=== PATIENT | female | born 1985 | race Caucasian/White ===

== ENCOUNTER 2024-06-13 10:46 | Outpatient (AMB) | payer OTHER, SELFPAY ==
--- NOTE | 2024-06-13 11:12 | A.OFFPC_ITS ---
Vital Signs 06/13/24 11:25 Height 5 ft 1 in Weight 194 lb 6 oz BMI 36.7 BP 132/82 Blood Pressure Location Lt brachial Position Sitting Pulse 100 Pulse Source Pulse Oximeter Pulse Oximetry (%) 95 Oxygen Delivery Method Room Air Intake Visit Reasons: Est. 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 She transferred from [facility]. Patient is and has 2 daughters. She has concerns regarding weight management associated with Polycystic Ovary Syndrome (PCOS). She was previously managed at [facility] where she was diagnosed with PCOS and started on Metformin for insulin resistance. However, she experienced significant nausea, precluding consistent use of Metformin over the past few months. As the nausea was severe and persistent, affecting her ability to eat, she discontinued the medication. She reports difficulty with weight loss despite dietary modifications and has attempted various strategies without success including a low-carbohydrate diet and walking and strength training. The patient requests Phentermine and expresses interest in using it as a short- term measure to support weight loss. She has PCOS-related insulin resistance but has not been diagnosed with diabetes. Her recent laboratory workup indicated a vitamin D deficiency, for which she was on a high dose treatment for 12 weeks. Patient has lab orders from her OBGYN to repeat her vitamin-D level now that she is off the supplement. She has anxiety and depression, and she has been stable on buspirone and bup ropion for years. Her OBGYN has been refilling this medication for her. Patient was informed and verbally consented to the use of an ambient scribe for clinic note documentation during this visit. ROS: Constitutional: No unexplained weight loss, fever, chills or night sweats. Respiratory: No shortness of breath, cough or sputum production. Cardiovascular: No chest pain, chest pressure or chest discomfort. No palpitations or pedal edema. Gastrointestinal: No anorexia, nausea, vomiting or diarrhea. No abdominal pain Neurologic: No headache, dizziness, syncope Endocrine: No cold or heat intolerance. No polyuria or polydipsia. Psychiatric: see HPI Physical exam: Constitutional: Alert, in no distress. Head: Normocephalic.. Neck: Supple, Full range of motion. No lymphadenopathy. No palpable thyroid masses. Respiratory: Clear to auscultation. Cardiovascular: S1 S2 regular. No murmurs. Extremities: Warm and well perfused. No clubbing, cyanosis or edema. Psychiatric: Normal mood and affect [facility] Medical History (Updated 06/13/24 @ 11:56 by BC Hernandez) History of ectopic Anxiety and depression Vitamin D deficiency Insulin resistance Obesity, class 3 PCOS (polycystic ovarian syndrome) Surgical History (Updated 06/13/24 @ 11:56 by BC Hernandez) History of salpingectomy History of section Family History (Updated 06/13/24 @ 11:24 by Shaunna Pritchett CMA) Father Alcoholic Asthma Maternal Grandmother Asthma Mother Asthma Other Substance abuse Social History (Updated 06/13/24 @ 11:14 by Shaunna Pritchett CMA) Housing: House Alcohol intake: current Patient Tobacco Use Status: Never used Tobacco e-Cigarette/Vaping Use: Never Used Second Hand Smoke Exposure: No service: No Current occupational status: employed 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 1. Little interest or pleasure in doing things: not at all 2. Feeling down, depressed, or hopeless: not at all 3. Trouble falling or staying asleep, or sleeping too much: not at all 4. Feeling tired or having little energy: several days 5. Poor appetite or overeating: nearly every day 6. Feeling bad about yourself - or that you are a failure or have let yourself or your family down: several days 7. Trouble concentrating on things, such as reading the newspaper or watching television: not at all 8. Moving or speaking so slowly that other people could have noticed. Or the opposite - being so fidgety or restless that you have been moving around a lot more than usual: not at all 9. Thoughts that you would be better off or of hurting yourself in some way: not at all Total score: 5 Depression Screening Interpretation: Positive Depression Screening Done: Yes 30318 - PHQ-9 Billing: Yes Source: Developed by Drs. Arnulfo Stanley, Meggan Pena, Toney Valdez and colleagues, with an educational janene from [employer]. Thrive Questionnaire Date Thrive assessed: 06/13/24 I am a: Patient What is your living situation today?: I have a steady place to live Within the past 12 months, did the food you bought not last and you didn't have the money to get more?: Never true Within the past 12 months, did you worry whether your food would run out before you got money to buy more?: Never true Do you have trouble paying for medicines?: No Do you have trouble getting transportation to medical appointments?: No Do you have trouble paying your heating and electricity bill?: No Do you have trouble taking care of your child, family member or friend?: No Do you have trouble with day-to-day activities such as bathing, preparing meals, shopping, managing finances, etc.?: No Are you currently unemployed and looking for a job?: No Are you interested in more education?: No Please select the resources that you would like help with: None Currently or been in a relationship where the following occur: No concerns reported THRIVE Score: 0 Physical exam (Primary Care) Vital Signs: Last Vital Signs Pulse 100 06/13/24 11:25 BP 132/82 06/13/24 11:25 Pulse Ox 95 06/13/24 11:25 Oxygen Delivery Method Room Air 06/13/24 11:25 BMI result Body Mass Index 36.7 Tobacco/Smoking Status: Tobacco use Status Tobacco use date assessed 06/13/24 06/13/24 11:14 Patient Tobacco Use Status Never used Tobacco 06/13/24 11:14 e-Cigarette/Vaping Use Never Used 06/13/24 11:14 PHQ-9: PHQ-9 Score PHQ-9: Total score 5 06/13/24 11:14 Depression Screening Interpretation: Positive Thrive Assessment: Date of Thrive Assessment Date Thrive assessed 06/13/24 06/13/24 11:14 Currently or been in a relationship where the following occur: No concerns reported Coding Level of Care Code New Pt Level 4 (80251) Complex EM visit Add On G2211 Diagnoses PCOS (polycystic ovarian syndrome) E28.2 Obesity, class 3 E66.813 Insulin resistance E88.819 Vitamin D deficiency E55.9 Anxiety and depression F41.9; F32.A Additional Codes PHQ-9 - 07264 - PHQ-9 Billing: Yes ([id number]) Assessment & Plan Assessment & Plan (1) PCOS (polycystic ovarian syndrome): Code(s): E28.2 - Polycystic ovarian syndrome Category: Medical (2) Obesity, class 3: Code(s): E66.813 - Obesity, class 3 Category: Medical (3) Insulin resistance: Code(s): E88.819 - Insulin resistance, unspecified Category: Medical (4) Vitamin D deficiency: Code(s): E55.9 - Vitamin D deficiency, unspecified Category: Medical (5) Anxiety and depression: Code(s): F41.9 - Anxiety disorder, unspecified; F32.A - Depression, unspecified Category: Medical Plan The patient will have lab orders completed for her OBGYN, and I added a hemoglobin A1c. She will continue her current medications for anxiety and depression. I told her that I can also refill these medications for her. She has been stable on them for years. She has [employer] which will not cover GLP 1 unless it comes from a board-certified weight loss specialist usually. I will prescribe phentermine to be used short term for weight loss in addition to lifestyle modifications. Patient denies history of cardiovascular disease. Reviewed side effects with the patient. I will have her come back in a few weeks to check vitals and progress. Orders: Orders Hemoglobin A1c Today E28.2 - Polycystic ovarian syndrome Medications: New phentermine Administer before breakfast or 1 to 2 hours after breakfast 15 mg PO DAILY 30 caps 0RF
[2024-06-13 11:25] VITALS: BP 132/82; PULSE 100; O2SAT 95; BMI 36.7
== END 2024-06-13 11:49 | disposition home or self-care (01) ==
PROVIDERS: PCP Physician Assistant Medical; Visit Provider Physician Assistant Medical
DX: E28.2 Polycystic ovarian syndrome (principal); E66.813 Obesity, class 3; E88.819 Insulin resistance, unspecified; Z68.36 Body mass index [BMI] 36.0-36.9, adult; E55.9 Vitamin D deficiency, unspecified; F41.9 Anxiety disorder, unspecified; F32.A Depression, unspecified

== ENCOUNTER → 2024-06-13 10:46 | Outpatient (BNVA) | payer OTHER, SELFPAY | PROVIDERS: Visit Provider Physician Assistant Medical | DX: E28.2 Polycystic ovarian syndrome (principal); E66.813 Obesity, class 3; Z68.36 Body mass index [BMI] 36.0-36.9, adult; E88.819 Insulin resistance, unspecified; E55.9 Vitamin D deficiency, unspecified; F41.9 Anxiety disorder, unspecified; F32.A Depression, unspecified | CPT/HCPCS: 96127 ==

== ENCOUNTER 2024-06-24 08:03 | Outpatient (REF) | payer OTHER, SELFPAY ==
[2024-06-24 11:36] LABS: Estimated Average Glucose 103 mg/dL; Hemoglobin A1C 113.1647 umol/L; Hemoglobin A1c % 5.2 % (<6.0); Total Hemoglobin (HGBA1C) 3365.2531 umol/L
[2024-06-24 11:58] LABS: Folate 14.6 ng/mL (> or = 4.0); Vitamin B12 461 pg/mL (200-900)
[2024-06-24 12:08] LABS: Alanine Aminotransferase 14 U/L (0-31); Albumin Level 4.3 g/dL (3.5-5.0); Alkaline Phosphatase 63 U/L (39-117); Anion Gap 10 (12-20); Aspartate Amino Transferase 20 U/L (5-31); Bilirubin Total 0.5 mg/dL (0.0-1.0); Blood Urea Nitrogen 13 mg/dL (9-16); Calcium 9.9 mg/dL (8.4-10.2); Carbon Dioxide 26 mmol/L (22-29); Chloride 108 mmol/L (96-108); Estimated Glomerular Filt Rate > 60; Glucose Random 88 mg/dL (60-115); Potassium 4.1 mmol/L (3.3-5.1); Sodium 140 mmol/L (135-145); Total Protein 7.6 g/dL (6.5-8.0)
[2024-06-24 12:10] LABS: Insulin 10 uU/mL (2-29); Vitamin D 25-OH Total 51.8 ng/mL (>30)
== END 2024-06-24 08:04 | disposition home or self-care (01) ==
LOC: HO.HHCL 08:03
PROVIDERS: Visit Provider Physician Assistant Medical
DX: E55.9 Vitamin D deficiency, unspecified (principal); E28.2 Polycystic ovarian syndrome; E16.1 Other hypoglycemia
CPT/HCPCS: 36415; 80053; 82306; 82607; 82746; 83036; 83525

== ENCOUNTER 2024-07-04 09:58 | Outpatient (AMB) | payer OTHER, SELFPAY ==
--- NOTE | 2024-07-04 10:00 | A.OFFPC_ITS ---
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 Patient is and has 2 daughters. At her initial visit we discussed her concerns regarding weight management. She was treated with metformin previously for weight management and PCOS, but she experienced nausea precluding consistent use of metformin. She has [facility] which requires GLP wants to be prescribed by a weight loss referral management liaison. She started phentermine 15 mg after her last visit. She lost a little over 7 lb initially, but she has plateaued. She denies side effects on the medication. Her wedding is next March. She is very motivated to lose weight. She is walking, and she is starting strength training. ROS: - Cardiovascular: Denies palpitations or increased anxiety. - Gastrointestinal: Denies appetite loss affecting meal frequency. Physical exam: Respiratory: Clear to auscultation. Cardiovascular: S1 S2 regular. No murmurs. [facility] Medical History (Updated 07/04/24 @ 10:26 by BC Hernandez) Obesity, class 2 History of ectopic Anxiety and depression Vitamin D deficiency Insulin resistance Obesity, class 3 PCOS (polycystic ovarian syndrome) Surgical History (Updated 06/13/24 @ 11:56 by BC Hernandez) History of salpingectomy History of section Family History (Updated 06/13/24 @ 11:24 by Shaunna Pritchett CMA) Father Alcoholic Asthma Maternal Grandmother Asthma Mother Asthma Other Substance abuse Social History (Updated 06/13/24 @ 11:14 by Shaunna Pritchett CMA) Housing: House Alcohol intake: current Patient Tobacco Use Status: Never used Tobacco e-Cigarette/Vaping Use: Never Used Second Hand Smoke Exposure: No service: No Current occupational status: employed 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 20443 - PHQ-9 Billing: Patient declined-do not bill Source: Developed by Drs. Arnulfo Stanley, Meggan Pena, Toney Valdez and colleagues, with an educational janene from [employer]. Thrive Questionnaire Date Thrive assessed: 07/04/24 I am a: Patient What is your living situation today?: I have a steady place to live Within the past 12 months, did the food you bought not last and you didn't have the money to get more?: Never true Within the past 12 months, did you worry whether your food would run out before you got money to buy more?: Never true Do you have trouble paying for medicines?: No Do you have trouble getting transportation to medical appointments?: No Do you have trouble paying your heating and electricity bill?: No Do you have trouble taking care of your child, family member or friend?: No Do you have trouble with day-to-day activities such as bathing, preparing meals, shopping, managing finances, etc.?: No Are you currently unemployed and looking for a job?: No Are you interested in more education?: No Please select the resources that you would like help with: None Currently or been in a relationship where the following occur: No concerns reported THRIVE Score: 0 Physical exam (Primary Care) Vital Signs: Last Vital Signs Pulse 93 07/04/24 10:02 Resp 12 07/04/24 10:02 BP 117/70 07/04/24 10:02 Pulse Ox 100 07/04/24 10:02 Oxygen Delivery Method Room Air 07/04/24 10:02 BMI result Body Mass Index 35.4 Tobacco/Smoking Status: Tobacco use Status Tobacco use date assessed 06/13/24 07/04/24 10:04 Patient Tobacco Use Status Never used Tobacco 07/04/24 10:04 e-Cigarette/Vaping Use Never Used 07/04/24 10:04 Thrive Assessment: Date of Thrive Assessment Date Thrive assessed 07/04/24 07/04/24 10:04 Currently or been in a relationship where the following occur: No concerns reported Coding Level of Care Code Est Pt Level 3 (74845) Complex EM visit Add On G2211 Diagnoses Obesity, class 2 E66.812 Assessment & Plan Assessment & Plan (1) Obesity, class 2: Code(s): E66.812 - Obesity, class 2 Category: Medical Plan The patient will increase phentermine to 15 mg twice daily. Side effects reviewed. Continue exercise for cardiovascular health and weight loss. She will try the right BMI courtney. Written instructions given to patient. Follow up in 8 weeks. Medications: Changed From phentermine Administer before breakfast or 1 to 2 hours after breakfast 15 mg PO DAILY 30 caps 0RF To phentermine 15 mg PO BID 60 caps 2RF Patient Instructions: [employer] Reminders: Watch all video tutorials, read all text messages and click on any features hidden messages to understand the courtney better. Accurately enter your weight in pounds and height in feet and inches. Accurately?select what time you wake up and sleep and be careful to select am/pm properly. Save your username and password somewhere. The courtney meets all HIPAA requirements. You must select shakes or bars or both and in the following?pages a specific brand. If you don't select a brand, the plan won't be accurate. You can use a regular?scale but buying the $23 [employer] scale from [employer] is recommended. For any issues you can hit technical support. If you take anti-diabetic and/or anti-hypertensive medications you must monitor blood sugars and blood pressure and alert the office if blood sugars are below 90 and blood pressures are below 110/60 so we can adjust medications if appropriate. The courtney will send you automatic?reminders to do that if you enter in the courtney that you have diabetes and/or hypertension and take medications for these conditions.
[2024-07-04 10:02] VITALS: BP 117/70; PULSE 93; RESP 12; O2SAT 100; BMI 35.4
== END 2024-07-04 10:27 | disposition home or self-care (01) ==
PROVIDERS: Visit Provider Physician Assistant Medical
DX: E66.812 Obesity, class 2 (principal); Z68.35 Body mass index [BMI] 35.0-35.9, adult

== ENCOUNTER 2024-09-12 11:34 | Outpatient (AMB) | payer OTHER, SELFPAY ==
[2024-09-12 11:38] VITALS: BP 110/80; PULSE 93; O2SAT 99; BMI 34.6
--- NOTE | 2024-09-12 11:38 | A.OFFPC_ITS ---
Vital Signs 09/12/24 11:38 Height 5 ft 1 in Weight 183 lb 4 oz BMI 34.6 BP 110/80 Blood Pressure Location Rt brachial Position Sitting Pulse 93 Pulse Source Pulse Oximeter Pulse Oximetry (%) 99 Oxygen Delivery Method Room Air Intake Visit Reasons: med check Allergies No Known Allergies Allergy (Verified 09/12/24 11:40) Tobacco use date assessed: 09/12/24 Dental Screening Dental Screen Date: 09/12/24 Did you have a dental visit in the last 12 months?: Yes Did you have a dental problem in the last 6 months where you did not have access to dental care?: No Was dental information given to patient?: Patient has dentist HPI HPI Comments History of Present Illness Details The patient is a 38-year-old female here for a medication review. Patient is and has 2 daughters. She is engaged. At her initial visit we discussed her concerns regarding weight management. She was treated with metformin previously for weight management and PCOS, but she experienced nausea precluding consistent use of metformin. She has [employer], and they will not cover a GLP 1. She started phentermine 15 mg and increased to 30 mg. She only lost 9 lb, and she has plateaued. She endorses constipation on the medicine. She walks and does strength training. She has changed her diet. She is very frustrated that she has been unable to lose weight. She has PCOS. She also went to [facility], but she had to pay [id number], and she did not find the appointment helpful. Depression has been well-controlled. She has a therapist. She is on Wellbutrin, but she is going to discuss stopping it with them because this was situational at the time of her divorce. She has chronic anxiety treated with buspirone which is well-controlled. ROS: Constitutional: No unexplained weight loss, fever, chills, fatigue or night sweats. Skin: No rash Endocrine: No cold or heat intolerance. No polyuria or polydipsia. Physical exam: Constitutional: Alert, in no distress. Extremities: Warm and well perfused. No clubbing, cyanosis or edema. Psychiatric: Normal mood and affect [facility] Medical History (Reviewed 09/12/24 @ 11:40 by Debo Pack [facility]) Obesity, class 2 History of ectopic Anxiety and depression Vitamin D deficiency Insulin resistance Obesity, class 3 PCOS (polycystic ovarian syndrome) Surgical History History of salpingectomy History of section Family History Father Alcoholic Asthma Maternal Grandmother Asthma Mother Asthma Other Substance abuse Social History (Reviewed 09/12/24 @ 11:40 by Debo Pack [facility]) Housing: House Alcohol intake: current Patient Tobacco Use Status: Never used Tobacco e-Cigarette/Vaping Use: Never Used Second Hand Smoke Exposure: No service: No Current occupational status: employed 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 1. Little interest or pleasure in doing things: not at all 2. Feeling down, depressed, or hopeless: not at all 3. Trouble falling or staying asleep, or sleeping too much: not at all 4. Feeling tired or having little energy: not at all 5. Poor appetite or overeating: not at all 6. Feeling bad about yourself - or that you are a failure or have let yourself or your family down: not at all 7. Trouble concentrating on things, such as reading the newspaper or watching television: not at all 8. Moving or speaking so slowly that other people could have noticed. Or the opposite - being so fidgety or restless that you have been moving around a lot more than usual: not at all 9. Thoughts that you would be better off or of hurting yourself in some way: not at all Total score: 0 Depression Screening Interpretation: Negative Depression Screening Done: Yes Source: Developed by Drs. Arnulfo Stanley, Meggan Pena, Toney Valdez and colleagues, with an educational janene from [employer]. Thrive Questionnaire Date Thrive assessed: 09/05/24 I am a: Patient What is your living situation today?: I have a steady place to live Within the past 12 months, did the food you bought not last and you didn't have the money to get more?: Never true Within the past 12 months, did you worry whether your food would run out before you got money to buy more?: Never true Do you have trouble paying for medicines?: No Do you have trouble getting transportation to medical appointments?: No Do you have trouble paying your heating and electricity bill?: No Do you have trouble taking care of your child, family member or friend?: No Do you have trouble with day-to-day activities such as bathing, preparing meals, shopping, managing finances, etc.?: No Are you currently unemployed and looking for a job?: No Are you interested in more education?: No Please select the resources that you would like help with: None Currently or been in a relationship where the following occur: No concerns reported THRIVE Score: 0 AUDIT C Alcohol Use Questionnaire (AUDIT-C) 1. How often do you have a drink containing alcohol?: 2-4 times a month 2. How many drinks containing alcohol do you have on a typical day when you are drinking?: 1 or 2 3. How often do you have six or more drinks on one occasion?: Never Total Score: 2 GOOD-7 AMB Questionnaire GOOD-7 Date GOOD - 7 assessed: 09/12/24 Feeling nervous, anxious, or on edge: 1 = Several days Not being able to stop or control worryin = Several days Worrying too much about different things: 1 = Several days Trouble relaxin = Not at all Being so restless that it is hard to sit still: 0 = Not at all Becoming easily annoyed or irritable: 0 = Not at all Feeling afraid as if something awful might happen: 0 = Not at all Total GOOD-7 score (0-4 normal; 5-9 mild; 10-14 moderate; 15-21 severe): 3 Source: Developed by Drs. Arnulfo Stanley, Meggan Pena, Toney Valdez and colleagues, with an educational janene from [employer]. Physical exam (Primary Care) Vital Signs: Last Vital Signs Pulse 93 09/12/24 11:38 BP 110/80 09/12/24 11:38 Pulse Ox 99 09/12/24 11:38 Oxygen Delivery Method Room Air 09/12/24 11:38 BMI result Body Mass Index 34.6 Tobacco/Smoking Status: Tobacco use Status Tobacco use date assessed 09/12/24 09/12/24 11:42 Patient Tobacco Use Status Never used Tobacco 09/12/24 11:42 e-Cigarette/Vaping Use Never Used 09/12/24 11:42 PHQ-9: PHQ-9 Score PHQ-9: Total score 0 09/12/24 12:00 Depression Screening Interpretation: Negative Thrive Assessment: Date of Thrive Assessment Date Thrive assessed 09/05/24 09/12/24 11:42 Currently or been in a relationship where the following occur: No concerns reported Coding Level of Care Code Est Pt Level 4 (90599) Diagnoses Obesity, class 2 E66.812 Time Spent (min) 30 Comment Direct patient care, completing documentation Assessment & Plan Assessment & Plan (1) Obesity, class 2: Code(s): E66.812 - Obesity, class 2 Category: Medical Plan The patient will discontinue phentermine since she has not reach her weight loss goal and she experiences constipation on this medicine. We discussed referral to weight loss management to discuss other modalities including medications and surgery. Patient says she does not want to proceed with the at this time. She tried the [employer] courtney-experienced weight gain and constipation. Recommended weight watchers at the [facility]. Defers referral to dietitian. She would like to check labs including B12, vitamin-D, cortisol and hormones due to PCOS. We will consider referral to Reproductive Endocrinology based on results. Orders: Orders Cortisol Random Today E28.2 - Polycystic ovarian syndrome, E55.9 - Vitamin D deficiency, unspecified, E66.812 - Obesity, class 2 Vitamin B12 Today E28.2 - Polycystic ovarian syndrome, E55.9 - Vitamin D deficiency, unspecified, E66.812 - Obesity, class 2, Z91.89 - Other specified personal risk factors, not elsewhere classified TSH reflex Free T4 Today E28.2 - Polycystic ovarian syndrome, E55.9 - Vitamin D deficiency, unspecified, E66.812 - Obesity, class 2 Vitamin D 25-OH (D2 and D3) Today E28.2 - Polycystic ovarian syndrome, E55.9 - Vitamin D deficiency, unspecified, E66.812 - Obesity, class 2, M85.80 - Other specified disorders of bone density and structure, unspecified site Testosterone, Free/Total Today E28.2 - Polycystic ovarian syndrome, E55.9 - Vitamin D deficiency, unspecified, E66.812 - Obesity, class 2 Estrogen Today E28.2 - Polycystic ovarian syndrome, E55.9 - Vitamin D deficiency, unspecified, E66.812 - Obesity, class 2 Lutenizing Hormone Today E28.2 - Polycystic ovarian syndrome, E55.9 - Vitamin D deficiency, unspecified, E66.812 - Obesity, class 2 Follicle Stimulating Hormone Today E28.2 - Polycystic ovarian syndrome, E55.9 - Vitamin D deficiency, unspecified, E66.812 - Obesity, class 2 Medications: Discontinued phentermine Discontinued Reason: Doctor's Order 15 mg PO BID 60 caps 2RF
--- OUTSIDE RECORDS SUMMARY | 2024-09-12 13:20 | XMS_ITS | Clinical Summary ---
Author Organization [facility] Address [address] [place] [address] Care Team Providers Care Quarry Supervisor Open Pit Name Role Phone Brandon Darling MD Primary Care Provider [phone] Allergies No known active allergies Medications No known medications Active Problems Problem Noted Date Diagnosed Date Intractable generalized abdominal pain 6 Leukocytosis 07/05/2016 Intractable vomiting with nausea 07/05/2016 Resolved Problems Problem Noted Date Diagnosed Date Resolved Date delivery delivered 11/11/2013 10/28/2013 Social History Tobacco Use Types Packs/Day Years Used Date Smoking Tobacco: Never Smokeless Tobacco: Never Alcohol Use Standard Drinks/Week Comments No 0 (1 standard drink = 0.6 oz pur e alcohol) Sex and Gender Information Value Date Recorded Sex Assigned at Female 10/02/2020 11:25 AM EDT Gender Identity Not on file Sexual Orientation Not on file Last Filed Vital Signs Vital Sign Reading Time Taken Comments Blood Pressure 130/54 07/06/2016 11:55 AM EST Pulse 94 07/06/2016 11:55 AM EST Temperature 36.7 ??C (98 ??F) 07/06/2016 11:55 AM EST Respiratory Rate 16 07/06/2016 11:55 AM EST Oxygen Saturation 96% 07/06/2016 11:55 AM EST Inhaled Oxygen Concentration - - Weight 90 kg (198 lb 8 oz) 07/06/2016 12:[address] Height 165.1 cm (5' 5 ) 07/05/2016 4:21 AM EST Body Mass Index 33.03 07/05/2016 4:21 AM EST Plan of Treatment Health Maintenance Due Date Last Done Comments Hepatitis B Vaccines (1 of 3 - 3-dose series) 1987 Hepatitis C Screening 1987 COVID-19 Vaccine (#1) 02/24/1988 Depression Screening 1999 Preventative Health Evaluation 2005 DTap / Tdap / Td (1 - Tdap) 2006 Cervical Cancer Screening (P ap Smear) 2008 Influenza Vaccine (#1) 2024 Pneumococcal Vaccine Aged Out No long er eligible based on patient's age to complete this topic RSV Ped < 20 months Aged Out No longe r eligible based on patient's age to complete this topic Advance Directives For more information, please contact: [phone] Latest Code Status on File Code Status Date Activated Date Inactivated Comments Full Code 07/05/2016 4:19 AM 07/06/2016 9:33 PM Thi s code status was ascertained in the following way: discussion with patient. Code Status History Code Status Date Activated Date Inactivated Comments Full Code 07/05/2016 2:54 AM 07/05/2016 4:19 AM Full Code 10/27/2013 5:32 PM 10/31/2013 7:41 PM This code status was ascertained in the following way: discussion with patient. Care Teams Quarry Supervisor Open Pit Relationship Specialty Start Date End Date Brandon Darling MD [id number] [place] [address] PCP - General Internal Medicine 10/02/20
--- OUTSIDE RECORDS SUMMARY | 2024-09-12 13:20 | XMS_ITS | Clinical Summary ---
Author Organization [facility] Address [address] [place] [address] Care Team Providers Care Time Signal Wirer Name Role Phone Brandon Darling MD Primary Care Provider Surgical History Surgery Date Site/Laterality Comments SECTION 10/28/2013 N/A PROCEDURE: SECTION;COMMENT:Procedure: OB SECTION; Surgeon: Shellie Tracy MD; Location: [facility] DELIVERY ROOM; Service: Obstetrics; Laterality: N/A; Social History Tobacco Use Types Packs/Day Years Used Date Smoking Tobacco: Never Smokeless Tobacco: Never Alcohol Use Standard Drinks/Week Comments No 0 (1 standard drink = 0.6 oz pur e alcohol) Comments Unknown Sex and Gender Information Value Date Recorded Sex Assigned at Not on file Legal Sex Female 2:57 AM EST Gender Identity Not on file Sexual Orientation Not on file Obstetrics History Plan of Treatment Health Maintenance Due Date Last Done Comments DTaP,Tdap,and Td Vaccines (1 - Tdap) 2006 Hepatitis B Vaccines (1 of 3 - 19+ 3-dose series) 2006 Cervical Cancer Screening: P ap Smear 2008 COVID-19 Vaccine ( - 2023-2 5 season) 2024 Influenza Vaccine (#1) 2024 HIB Vaccines Aged Out No longer eligi ble based on patient's age to complete this topic HPV Vaccines Aged Out No longer eligi ble based on patient's age to complete this topic Hepatitis A Vaccines Aged Out No long er eligible based on patient's age to complete this topic IPV Vaccines Aged Out No longer eligi ble based on patient's age to complete this topic MMR Vaccines Aged Out No longer eligi ble based on patient's age to complete this topic Meningococcal ACWY Vaccine Aged Out N o longer eligible based on patient's age to complete this topic Meningococcal B Vacine Aged Out No lo nger eligible based on patient's age to complete this topic Pneumococcal Vaccine: Pediat rics (0 to 5 Years) and At-Risk Patients (6 to 64 Years) Aged Out No longer eligible b ased on patient's age to complete this topic RSV Immunization Patients Un constance 20 months Aged Out No longer eligible b ased on patient's age to complete this topic Varicella Vaccines Aged Out No longer eligible based on patient's age to complete this topic Care Teams Time Signal Wirer Relationship Specialty Start Date End Date Brandon Darling MD [address] [address] PCP - General Internal Medicine 10/02/20
--- OUTSIDE RECORDS SUMMARY | 2024-09-12 13:20 | XMS_ITS | Clinical Summary ---
Author Organization [facility] Address [address] [place] [address] Care Team Providers Care Overhead Worker Name Role Phone Unavailable Primary Care Provider Unavailabl e Social History Tobacco Use Types Packs/Day Years Used Date Smoking Tobacco: Never Assessed Sex and Gender Information Value Date Recorded Sex Assigned at Not on file Gender Identity Not on file Sexual Orientation Not on file Plan of Treatment Health Maintenance Due Date Last Done Comments Hepatitis C Virus Screening 1987 HIV Screening 2000 DTaP/Tdap/Td Vaccines (1 - Tdap) 2006 Hepatitis B Vaccines (1 of 3 - 19+ 3-dose series) 2006 COVID-19 Vaccine (2023-2 5 season) 2024 HPV Vaccines Aged Out No longer eligi ble based on patient's age to complete this topic Pneumococcal Vaccine: Pediat gm (0-5 Years) and At-Risk Patients (6 to 49 Years) Aged Out No longer eligible b ased on patient's age to complete this topic
--- OUTSIDE RECORDS SUMMARY | 2024-09-12 13:20 | XMS_ITS | Encounter Summary ---
Author Organization [facility] Address [address] [place] [id number] Care Team Providers Care Fuel Cell Builder Name Role Phone Unavailable Primary Care Provider Unavailabl e Encounter Details Date Type Department Care Team (Late st Contact Info) Description 08/14/2016 Scanned Document [address] [id number] Jean Diggs MD Social History Tobacco Use Types Packs/Day Years Used Date Smoking Tobacco: Never Assessed Sex and Gender Information Value Date Recorded Sex Assigned at Not on file Gender Identity Not on file Sexual Orientation Not on file documented as of this encounter Plan of Treatment Not on file documented as of this encounter Visit Diagnoses Not on filedocumented in this encounter
--- OUTSIDE RECORDS SUMMARY | 2024-09-12 13:20 | XMS_ITS | Clinical Summary ---
Author Organization [employer] Address [address] [facility] [address] [place] [address] Care Team Providers Care Mechanical Laboratory Technician Name Role Phone Unavailable Primary Care Provider Unavailabl e Immunizations Name Administration Dates Next Due Influenza, seasonal, injectable, preservative fr ee 03/30/2024 Social History Tobacco Use Types Packs/Day Years Used Date Smoking Tobacco: Never Assessed Comments Unknown Sex and Gender Information Value Date Recorded Sex Assigned at Female 05/19/2022 10:39 AM EDT Legal Sex Female 10:39 AM EDT Gender Identity Female 05/19/2022 10:39 AM EDT Sexual Orientation Choose not to disclose 2021 10:39 AM EDT Plan of Treatment Health Maintenance Due Date Last Done Comments Depression Screening 1987 HIV Screening 1987 SDOH Screening 1987 Alcohol/Substance Use Screening 1999 Tobacco Screening 1999 Family Planning (PISQ) 2002 Hepatitis C Screening 2005 Hepatitis B Vaccines (1 of 3 - 19+ 3-dose series) 2006 Pap Smear 2008 Cervical Cancer Screening 2017 HPV/Cotest 2017 COVID-19 Vaccine ( season) 2024 06/21/2021, 08/14/2020, 07/17/2020 DTaP/Tdap/Td Vaccines (2 - Td or Tdap) 10/25/2028 10/25/2018 Zoster Vaccines (1 of 2) 2037 RSV Patients and Patients Aged 60 years or older (1 - 1-dose 75+ series) 2062 Influenza Vaccine Completed 03/30/2024, , 04/04/2021, Additional history exists HIB Vaccines Aged Out No longer eligi [...] patient's age to complete this topic Meningococcal Vaccine Aged Out No riana nicky eligible based on patient's age to complete this topic Pneumococcal Vaccine: Pediatrics (0 to 5 Years) and At-Risk Patients (6 to 49) Years) Aged Out No longer eligible based on patient's age to complete this topic RSV under 20 months Aged Out No longe r eligible based on patient's age to complete this topic Rotavirus Vaccines Aged Out No longer eligible based on patient's age to complete this topic Insurance [facility]
== END 2024-09-12 12:29 | disposition home or self-care (01) ==
PROVIDERS: PCP Physician Assistant Medical; Visit Provider Physician Assistant Medical
DX: E66.812 Obesity, class 2 (principal); Z68.34 Body mass index [BMI] 34.0-34.9, adult

== ENCOUNTER → 2024-09-12 11:34 | Outpatient (BNVA) | payer OTHER, SELFPAY | PROVIDERS: PCP Physician Assistant Medical; Visit Provider Physician Assistant Medical ==

== ENCOUNTER 2024-09-15 08:08 | Outpatient (REF) | payer OTHER, SELFPAY ==
--- OUTSIDE RECORDS SUMMARY | 2024-09-15 08:20 | XMS_ITS | Clinical Summary ---
Author Organization [facility] Address [address] [place] [address] Care Team Providers Care Air Quality Instrument Specialist Name Role Phone Brandon Darling MD Primary Care Provider [phone] Allergies No known active allergies Medications No [...] Advance Directives For more information, please contact: [phone] Latest Code Status on File Code Status [...] following way: discussion with patient. Care Teams Air Quality Instrument Specialist Relationship Specialty Start Date End Date Brandon Darling MD [id number] [place] [address] PCP - General Internal Medicine 10/02/20
--- OUTSIDE RECORDS SUMMARY | 2024-09-15 08:21 | XMS_ITS | Encounter Summary ---
Author Organization [facility] Address [address] [place] [address] Care Team Providers Care Newspaper Carrier Name Role Phone Unavailable Primary Care Provider Unavailabl e Encounter Details Date Type Department Care Team (Late st Contact Info) Description 08/14/2016 Scanned Document [address] [phone] Jean Diggs MD Social History [...]
--- OUTSIDE RECORDS SUMMARY | 2024-09-15 08:21 | XMS_ITS | Clinical Summary ---
Author Organization [employer] Address [address] [facility] [address] [place] [address] Care Team Providers Care Clinical Education Academic Coordinator Name Role Phone Unavailable Primary Care Provider [...] patient's age to complete this topic Insurance [facility]
--- OUTSIDE RECORDS SUMMARY | 2024-09-15 08:21 | XMS_ITS | Clinical Summary ---
Author Organization [facility] ity Address [address] [place] [address] Care Team Providers Care Container Shop Welder Name Role Phone Brandon Darling MD Primary Care Provider [phone] Surgical History Surgery Date Site/Laterality Comments SECTION 10/28/2013 N/A PROCEDURE: SECTION;COMMENT:Procedure: OB SECTION; Surgeon: Shellie Tracy MD; Location: [facility] DELIVERY ROOM; Service: Obstetrics; Laterality: N/A; Social [...] age to complete this topic Care Teams Container Shop Welder Relationship Specialty Start Date End Date Brandon Darling MD [address] [address] PCP - General Internal Medicine 10/02/20
--- OUTSIDE RECORDS SUMMARY | 2024-09-15 08:21 | XMS_ITS | Clinical Summary ---
Author Organization [facility] Address [address] [place] [address] Care Team Providers Care Commercial Service Technician Name Role Phone Unavailable Primary Care [...]
[2024-09-15 12:35] LABS: Cortisol Random 4.8 ug/dL; TSH reflex Free T4 0.93 uIU/mL (0.32-4.0)
[2024-09-15 12:44] LABS: Vitamin B12 481 pg/mL (200-900)
[2024-09-16 07:58] LABS: Follicle Stimulating Hormone 4.9 mIU/mL; Lutenizing Hormone 3.3 mIU/mL
[2024-09-20 11:13] LABS: Vitamin D 25-OH, D2 <4 ng/mL; Vitamin D 25-OH, D3 44 ng/mL; Vitamin D 25-OH, Total 44 ng/mL (30-100)
[2024-09-21 15:13] LABS: Estrogen 113 pg/mL
[2024-09-22 13:53] LABS: Testosterone, Free 6.2 pg/mL (0.1-6.4); Testosterone, Total 36 ng/dL (2-45)
== END 2024-09-15 08:09 | disposition home or self-care (01) ==
LOC: HO.HHCL 08:08
PROVIDERS: Visit Provider Physician Assistant Medical
DX: E66.812 Obesity, class 2 (principal); E55.9 Vitamin D deficiency, unspecified; E28.2 Polycystic ovarian syndrome; Z91.89 Other specified personal risk factors, not elsewhere classified; M85.80 Other specified disorders of bone density and structure, unspecified site
CPT/HCPCS: 36415; 82306; 82533; 82607; 82672; 83001; 83002; 84402; 84403; 84443